=== PATIENT | female | born 1990 | race Two or more races ===

== ENCOUNTER 2023-11-02 22:25 | Outpatient (CLI) | payer MEDICAID, SELFPAY ==
[2023-11-02 22:25] VITALS: TEMP 37
[2023-11-02 22:38] VITALS: BMI 28.1
[2023-11-02] MEDS: BETAMET ACET/BETAMET NA PH (Celestone) 6 MG/ML VIAL 12 MG IM (23:17)
== END 2023-11-02 23:21 | disposition home or self-care (01) ==
LOC: S4S1 22:43 → S4SX 22:44
PROVIDERS: Referring Provider Obstetrics & Gynecology; Visit Provider Obstetrics & Gynecology
DX: Z34.83 Encounter for supervision of other normal pregnancy, third trimester (principal); Z36.89 Encounter for other specified antenatal screening; Z3A.28 28 weeks gestation of pregnancy
CPT/HCPCS: 59025; 96372; J0702